=== PATIENT | female | born 1985 | race Caucasian/White ===

== ENCOUNTER 2016-08-21 11:27 | Emergency (ER) | payer OTHER ==
[~2016-08-21] VITALS: Ht 162.6 cm; Wt 63.0 kg
[~2016-08-21 11:27] MED LIST: FERR240T9 PO; NITR-58 PO; PREN1TAB31 PO
[2016-08-21 11:36] VITALS: Ht 162.6 cm; Wt 63.0 kg
[2016-08-21 13:29] LABS: ADD SCAN DIFF NO
[2016-08-21 13:32] LABS: BASOPHILS % 0.3 % (0.0-2.0); EOSINOPHILS # 0.2 10^3/ul (0.0-0.5); EOSINOPHILS % 2.3 % (0.0-7.0); HEMATOCRIT 35.7 % (37.0-47.0); HEMOGLOBIN 11.9 g/dl (12.0-16.0); LYMPHOCYTES # 2.1 10^3/ul (0.8-2.9); LYMPHOCYTES % 32.2 % (15.0-51.0); MEAN CORPUSCULAR HGB CONC 33.3 g/dl (32.0-37.0); MEAN PLATELET VOLUME 9.8 fl (7.4-10.4); MONOCYTE # 0.4 10^3/ul (0.3-0.9); MONOCYTES % 6.2 % (0.0-11.0); NEUTROPHIL # 3.9 10^3/ul (1.6-7.5); NEUTROPHILS % 58.7 % (39.0-77.0); PLATELET COUNT 248 10^3/UL (140-415); RED BLOOD COUNT 3.84 10^6/ul (4.20-5.40); RED CELL DISTRIBUTION WIDTH 12.7 % (11.5-14.5); WHITE BLOOD COUNT 6.6 10^3/ul (4.8-10.8)
[2016-08-21 13:35] LABS: ADD UMIC YES; UR BILIRUBIN (Dip) NEGATIVE (NEGATIVE); UR BLOOD (Dip) 1+ (NEGATIVE); UR CLARITY CLEAR (CLEAR); UR COLOR LT. YELLOW (YELLOW); UR GLUCOSE (Dip) NEGATIVE (NEGATIVE); UR KETONES (Dip) NEGATIVE (NEGATIVE); UR LEUKOCYTE ESTERASE (Dip) NEGATIVE (NEGATIVE); UR NITRITE (Dip) NEGATIVE (NEGATIVE); UR TOTAL PROTEIN (Dip) NEGATIVE (NEGATIVE); UR UROBILINOGEN (Dip) 0.2 E.U./dL (0.1-1.0)
--- NOTE | 2016-08-21 13:40 | ERD ---
ER Documentation Chief Complaint Date/Time DATE: 08/21/16 TIME: 13:37 Chief Complaint 8 WEEKS WITH SPOTTING HPI This patient is a 31-year-old female who is Ab2 LC 3 currently reportedly 8 weeks presenting to the emergency department for vaginal bleeding since yesterday. The bleeding was mild and it improved today. The patient is taken no medications for relief of her symptoms. The patient denies back pain, suprapubic cramping or pain, fevers, chills, urinary symptoms, or other symptoms at this time. ROS All systems reviewed and are negative except as per history of present illness. Medications Home Meds Active Scripts Nitrofurantoin Monohyd Macrocr* (Macrobid*) 100 Mg Capsr, 100 MG PO HS for 7 Days, CAP Prov:ALEJO RICARDO PA-C 04/28/16 Reported Medications Ferrous Gluconate (Iron) 1 Tab Tablet, 1 TAB PO DAILY 08/07/14 Vits #90-Iron Fum-FA ( Formula) 1 Each Tablet, 1 TAB PO DAILY, TAB 02/21/14 Allergies Allergies: Coded Allergies: No Known Allergy (Unverified , 08/21/16) PMhx/Soc Medical and Surgical Hx: pt denies Medical Hx, pt denies Surgical Hx History of Surgery: No Anesthesia Reaction: No Hx Neurological Disorder: No Hx Respiratory Disorders: No Hx Cardiac Disorders: No Hx Psychiatric Problems: No Hx Miscellaneous Medical Probl: No Hx Alcohol Use: No Hx Substance Use: No Hx Tobacco Use: No Smoking Status: Never smoker FmHx Noncontributory for chief complaint Physical Exam Vitals Vital Signs Date Time Temp Pulse Resp B/P Pulse Ox O2 Delivery O2 Flow Rate FiO2 08/21/16 15:15 98.1 68 18 110/64 99 08/21/16 11:36 98.1 64 20 112/67 99 Physical Exam Const: The patient is resting comfortably in no acute distress. Head: Atraumatic Eyes: Normal Conjunctiva ENT: Normal External Ears, Nose and Mouth. Neck: Full range of motion..~ No meningismus. Resp: Clear to auscultation bilaterally Cardio: Regular rate and rhythm, no murmurs Abd: Soft, non tender, non distended. Normal bowel sounds : There is no suprapubic tenderness to palpation. There is no CVA tenderness. Skin: No petechiae or rashes Back: No midline or flank tenderness Ext: No cyanosis, or edema Neur: Awake and alert Psych: Normal Mood and Affect Result Diagram: 08/21/16 1304 Results 24 hrs Laboratory Tests Test 08/21/16 13:04 White Blood Count 6.610^3/ul Red Blood Count 3.8410^6/ul Hemoglobin 11.9g/dl Hematocrit 35.7% Mean Corpuscular Volume 93.0fl Mean Corpuscular Hemoglobin 31.0pg Mean Corpuscular Hemoglobin Concent 33.3g/dl Red Cell Distribution Width 12.7% Platelet Count 69322^3/UL Mean Platelet Volume 9.8fl Neutrophils % 58.7% Lymphocytes % 32.2% Monocytes % 6.2% Eosinophils % 2.3% Basophils % 0.3% Nucleated Red Blood Cells % 0.0/100WBC Neutrophils # 3.910^3/ul Lymphocytes # 2.110^3/ul Monocytes # 0.410^3/ul Eosinophils # 0.210^3/ul Basophils # 0.010^3/ul Nucleated Red Blood Cells # 0.010^3/ul Urine Color LT. YELLOW Urine Clarity CLEAR Urine pH 6.0 Urine Specific [place] 1.025 Urine Ketones NEGATIVE Urine Nitrite NEGATIVE Urine Bilirubin NEGATIVE Urine Urobilinogen 0.2 E.U./dL Urine Leukocyte Esterase NEGATIVE Urine Microscopic RBC 2-5/HPF Urine Microscopic WBC NONE SEEN/HPF Urine Squamous Epithelial Cells FEW Urine Hemoglobin 1+ Urine Glucose NEGATIVE% Urine Total Protein NEGATIVE Beta HCG, Quantitative 03291.0mIU/ml Procedures/[facility] EMERGENCY DEPARTMENT COURSE / MEDICAL DECISION MAKING: This is a 31-year-old female who comes to the emergency room secondary to complaints of vaginal bleeding. The patient is currently reportedly 8 weeks . Lab results reviewed and showed no signs of leukocytosis. There was slight anemia noted but not significant. Urinalysis was not concerning for infection or proteinuria. Beta hCG is consistent with term of . Radiology: PROCEDURE: US OB. CLINICAL INDICATION: Vaginal spotting TECHNIQUE: Transabdominal and transvaginal views of the pelvis were obtained. COMPARISON: No prior studies are available for comparison. FINDINGS: There is a single intrauterine gestation with a CRL measuring 3.8 cm and the gestational sac measures 3.5 cm, corresponding to a gestational age of 9 weeks and 5 days. The heart rate is noted at 176 bpm. There is a mixed echogenicity fluid collection adjacent to the gestational sac, measuring 5.4 x 4.1 x 1.1 cm, consistent with subchorionic hemorrhage. The right ovary measures 2.7 x 1.4 x 1.9 cm. The left ovary measures 3.6 x 1.9 x 3.5 cm. No ovarian or adnexal mass lesion is seen. There is no free fluid. RPTAT: AA IMPRESSION: Single live intrauterine with an estimated gestational age of 9 weeks and 5 days, based on ultrasound measurements. Large area of subchorionic hemorrhage. Close follow-up is recommended. .Darien Echevarria MD, MD Date Time Electronically viewed and signed by .Darien Echevarria MD, MD on 08/21/2016 13: 58 .S/ CC: GREG WEBB PA-C The primary diagnosis is vaginal bleeding and patient less than 20 weeks gestation. I have low suspicion for ovarian torsion, ectopic , acute abdomen, septicemia, or other emergent conditions at this time. Discharge: I have discussed the lab results and diagnostic findings with the patient and answered any questions or concerns. The patient is to follow-up with her [facility] [employer] [facility] specialist as soon as possible. The patient was advised to followup with their PMD in 1-2 days and to return to the Emergency Department if there are any new or worsening symptoms. The patient understood and agreed with the diagnosis, treatment and plan. The patient is stable for discharge at this time. Departure Diagnosis: Primary Impression: Vaginal bleeding in patient at less than 20 weeks gestation Condition: Fair Patient Instructions: Bleeding During Early Referrals: [facility] Additional Instructions: Please follow-up with an [facility] [employer] specialist as soon as possible. Follow-up with your primary care physician within 1 week. Return to the emergency department immediately should you have any new or worsening symptoms, uncontrolled fevers, or other unexplained symptoms. Take all medications as directed. GREG WEBB PA-C Aug 21, 2016 13:40
[2016-08-21 13:46] LABS: UR SQUAMOUS EPITHELIAL CELL FEW
--- NOTE | 2016-08-21 13:58 | RADRPT ---
PROCEDURE: US OB. CLINICAL INDICATION: Vaginal spotting TECHNIQUE: Transabdominal and transvaginal views of the pelvis were obtained. COMPARISON: No prior studies are available for comparison. FINDINGS: There is a single intrauterine gestation with a CRL measuring 3.8 cm and the gestational sac measure s 3.5 cm, corresponding to a gestational age of 9 weeks and 5 days. The heart rate is noted at 176 bpm. There is a mixed echogenicity fluid collection adjacent to the gestational sac, measuring 5.4 x 4.1 x 1.1 cm, consistent with subchorionic hemorrhage. The right ovary measures 2.7 x 1.4 x 1.9 cm. The left ovary measures 3.6 x 1.9 x 3.5 cm. No ovarian or adnexal mass lesion is seen. There is no free fluid. RPTAT: AA IMPRESSION: Single live intrauterine with an estimated gestational age of 9 weeks and 5 days, based on ultrasound measurements. Large area of subchorionic hemorrhage. Close follow-up is recommended. .Darien Echevarria MD, Date Time Electronically viewed and signed by .Darien Echevarria MD, on 08/21/2016 13:58 .S/
[2016-08-21 15:15] VITALS: BP 110/64; PULSE 68; RESP 18; TEMP 98.1
== END 2016-08-21 15:15 | disposition home or self-care (01) ==
LOC: FTE 11:27
DX: O20.9 Hemorrhage in early pregnancy, unspecified (principal); Z3A.09 9 weeks gestation of pregnancy
CPT/HCPCS: 36415; 76801; 76817; 81001; 81003; 84702; 85025; 86900; 86901; 87086

== ENCOUNTER 2017-10-16 14:18 | Emergency (ER) | END 2017-10-16 18:20 | disposition home or self-care (01) ==

== ENCOUNTER 2018-06-25 15:56 | Emergency (ER) | payer OTHER ==
[~2018-06-25] VITALS: Ht 167.6 cm; Wt 64.5 kg
[~2018-06-25 15:56] MED LIST changes: +ACET500C5 PO; +AMOX500C2 PO; +AZIT250T PO; +IBUP-1542 PO
[2018-06-25 16:34] VITALS: Ht 167.6 cm; Wt 64.5 kg
[2018-06-25] MEDS: ACETAMINOPHEN 325 MG TAB PO ONE ×2 (17:37→17:39)
--- NOTE | 2018-06-25 18:54 | ERD ---
ER Documentation Chief Complaint Chief Complaint vag bleed, possible misscarriage 11wks HPI 33-year-old female presents with vaginal bleeding over the last week. She has had spotting over the last week was diagnosed with a failed by her OB. She has had some heavier bleeding with some cramping today. She may have had some tissue or clots. She is a . She denies any fevers, vomiting, additional symptoms. He is somewhat improved since earlier this today. ROS All systems reviewed and are negative except as per history of present illness. Medications Home Meds Active Scripts Amoxicillin* (Amoxicillin*) 500 Mg Cap, 1000 MG PO TID for 7 Days, CAP Prov:ZACK PAULSON-C 10/16/17 Azithromycin* (Zithromax*) 250 Mg Tablet, 250 MG PO DAILY for 4 Days, TAB Prov:ZACK PAULSON PA-C 10/16/17 Acetaminophen* (Tylophen*) 500 Mg Capsule, 2 CAP PO Q6H PRN for PAIN AND OR ELEVATED TEMP, #20 CAP Prov:ZACK PAULSONC 10/16/17 Ibuprofen* (Motrin*) 600 Mg Tab, 600 MG PO Q6, #30 TAB Prov:ZACK PAULSON-C 10/16/17 Nitrofurantoin Monohyd Macrocr* (Macrobid*) 100 Mg Capsr, 100 MG PO HS for 7 Days, CAP Prov:ALEJO RICARDO-C 04/28/16 Reported Medications Ferrous Gluconate (Iron) 1 Tab Tablet, 1 TAB PO DAILY 08/07/14 Vits #90-Iron Fum-FA ( Formula) 1 Each Tablet, 1 TAB PO DAILY, TAB 02/21/14 Allergies Allergies: Coded Allergies: No Known Allergy (Unverified , 10/16/17) PMhx/Soc History of Surgery: No Anesthesia Reaction: No Hx Neurological Disorder: No Hx Respiratory Disorders: No Hx Cardiac Disorders: No Hx Psychiatric Problems: No Hx Miscellaneous Medical Probl: Yes Hx Alcohol Use: No Hx Substance Use: No Hx Tobacco Use: No FmHx Family History: No diabetes, No coronary disease, No other Physical Exam Vitals Vital Signs Date Temp Pulse Resp B/P (MAP) Pulse Ox O2 O2 Flow FiO2 Time Delivery Rate 06/25/18 98.7 86 18 148/90 99 16:34 (109) Physical Exam Const: No acute distress Head: Atraumatic Eyes: Normal Conjunctiva ENT: Normal External Ears, Nose and Mouth. Neck: Full range of motion. No meningismus. Resp: Clear to auscultation bilaterally Cardio: Regular rate and rhythm, no murmurs Abd: Soft, no tenderness suprapubic area. No tenderness McBurney's point no [place] sign. Non distended. Normal bowel sounds Skin: No petechiae or rashes Back: No midline or flank tenderness Ext: No cyanosis, or edema Neur: Awake and alert Psych: Normal Mood and Affect Result Diagram: 06/25/181741 Results 24 hrs Laboratory Tests Test 06/25/18 17:42 White Blood Count 13.0 10^3/ul Red Blood Count 4.03 10^6/ul Hemoglobin 12.0 g/dl Hematocrit 36.8 % Mean Corpuscular Volume 91.3 fl Mean Corpuscular Hemoglobin 29.8 pg Mean Corpuscular Hemoglobin Concent 32.6 g/dl Red Cell Distribution Width 13.2 % Platelet Count 266 10^3/UL Mean Platelet Volume 9.5 fl Immature Granulocytes % 0.500 % Neutrophils % 79.8 % Lymphocytes % 13.9 % Monocytes % 4.7 % Eosinophils % 0.8 % Basophils % 0.3 % Nucleated Red Blood Cells % 0.0 /100WBC Immature Granulocytes # 0.060 10^3/ul Neutrophils # 10.4 10^3/ul Lymphocytes # 1.8 10^3/ul Monocytes # 0.6 10^3/ul Eosinophils # 0.1 10^3/ul Basophils # 0.0 10^3/ul Nucleated Red Blood Cells # 0.0 10^3/ul Beta HCG, Quantitative 1205.3 mIU/ml Current Medications Medications Dose Sig/Sis Start Time Status Last (Trade) Ordered Route PRN Stop Time Admin Dose Reason Admin 650 mg ONCE ONCE 06/25/18 DC Acetaminophen PO 17:30 (Tylenol 06/25/18 17:31 Tab) Procedures/MDM Pelvic ultrasound shows approximately 7-week intrauterine with pole and yolk sac without visualized heart tones. Findings are consistent with a failed . There is also an additional gestational sac without pole or yolk sac suggestive of a twin gestation without development of the . CBC shows no evidence of anemia. She is Rh+. Positive hCG is 1205. She did expel some clots or tissue during the ER course. Pelvic exam was performed and I did perform some removal of some tissue although there is still some visible tissue deep in the OS which is still open. She has minimal bleeding. Patient presents with vaginal bleeding with findings of a failed twin . She has no signs of ectopic and doubt appendicitis, additional causes of abdominal pain. Treatment was discussed with patient. She states that she is changing her pads frequently and admission to the hospital for evaluation for D&C was offered but patient would like to wait at home and allow miscarriage to take place spontaneously. I think this is reasonable given that she is not anemic without signs of active hemorrhage or significant pain or signs of infection. Patient's OB is Dr. Bah. Patient is currently taking antibiotics and is advised to continue antibiotics. Departure Diagnosis: Primary Impression: Vaginal bleeding in patient at less than 20 weeks ges... Condition: Stable Patient Instructions: Miscarriage (Incomplete) Referrals: DOCTOR,NOT ON STAFF (PCP) Additional Instructions: See OB this week for follow-up. Return for fevers, new or worsening symptoms. Likely early miscarriage. He did take Tylenol or ibuprofen for pain. PARADISE JEREZ MD Jun 25, 2018 18:54
[2018-06-25 20:11] VITALS: BP 117/69; PULSE 80; RESP 19
== END 2018-06-25 20:12 | disposition home or self-care (01) ==
LOC: FTE 15:56
DX: O20.9 Hemorrhage in early pregnancy, unspecified (principal); Z3A.01 Less than 8 weeks gestation of pregnancy
CPT/HCPCS: 36415; 76801; 76817; 84702; 85025; 86900; 86901; Z7502; Z7610; 88305